=== PATIENT | female | born 1960 ===

== ENCOUNTER → 2016-03-21 | Outpatient (CLI) | payer OTHER ==
[2016-03-21 13:16] LABS: HEMATOCRIT 29.7 % (37-47)
[2016-03-21 13:17] LABS: ALT/SGPT 29 U/L (12-78); BLOOD UREA NITROGEN 19 mg/dl (7-18); BUN/CREATININE RATIO 19.5 (10-20); CALCIUM 8.1 mg/dl (8.5-10.1); CARBON DIOXIDE 24 mmol/L (21-32); CHLORIDE 110 mmol/L (98-107); CREATININE 0.95 mg/dl (0.60-1.20); GLUCOSE 95 mg/dl (70-99); POTASSIUM 3.9 mmol/L (3.5-5.1); SODIUM 143 mmol/L (136-145)
[2016-03-21 13:24] LABS: TOTAL IRON BINDING CAPACITY 348 mcg/dl (250-450)
[2016-03-21 13:28] LABS: ESTIMATED AVERAGE GLUCOSE 137 mg/dl; HA1C FLAG Normal (Normal)
== END | disposition home or self-care (01) ==
LOC: C.LABMFLN 08:12
PROVIDERS: ATTEND Family Medicine
DX: E11.9 Type 2 diabetes mellitus without complications (principal); D64.9 Anemia, unspecified

== ENCOUNTER → 2016-05-13 | Outpatient (CLI) | payer OTHER ==
[2016-05-13 13:50] LABS: HEMATOCRIT 37.1 % (37-47)
[2016-05-13 14:00] LABS: ESTIMATED AVERAGE GLUCOSE 105 mg/dl; HA1C FLAG Normal (Normal)
[2016-05-13 14:04] LABS: ALT/SGPT 26 U/L (12-78); BLOOD UREA NITROGEN 21 mg/dl (7-18); BUN/CREATININE RATIO 25.9 (10-20); CALCIUM 9.1 mg/dl (8.5-10.1); CARBON DIOXIDE 24 mmol/L (21-32); CHLORIDE 112 mmol/L (98-107); CREATININE 0.79 mg/dl (0.60-1.20); GLUCOSE 93 mg/dl (70-99); POTASSIUM 3.5 mmol/L (3.5-5.1); SODIUM 145 mmol/L (136-145)
[2016-05-13 14:07] LABS: ALB/GLOB RATIO 1.1 (0.9-2); ALKALINE PHOSPHATASE 67 U/L (45-117); AST/SGOT 20 U/L (15-37)
[2016-05-13 14:13] LABS: CHOLESTEROL 113 mg/dl (0-200); CHOLESTEROL/HDL RATIO 1.8; HDL CHOLESTEROL 63 mg/dl; TOTAL IRON BINDING CAPACITY 326 mcg/dl (250-450); TRIGLYCERIDES 78 mg/dl (0-150); VERY LOW DENSITY LIPOPROT CALC 16 mg/dl
== END | disposition home or self-care (01) ==
LOC: C.LABMFLN 11:32
PROVIDERS: ATTEND Family Medicine
DX: K91.2 Postsurgical malabsorption, not elsewhere classified (principal); R63.4 Abnormal weight loss; E78.00 Pure hypercholesterolemia, unspecified; I10 Essential (primary) hypertension; E11.9 Type 2 diabetes mellitus without complications; E55.9 Vitamin D deficiency, unspecified; E53.8 Deficiency of other specified B group vitamins

== ENCOUNTER → 2016-12-02 | Outpatient (CLI) | payer OTHER ==
[2016-12-02 14:11] LABS: HEMATOCRIT 33.2 % (37-47)
[2016-12-02 14:17] LABS: ESTIMATED AVERAGE GLUCOSE 154 mg/dl; HA1C FLAG Normal (Normal)
[2016-12-02 14:40] LABS: ALT/SGPT 36 U/L (12-78); BLOOD UREA NITROGEN 24 mg/dl (7-18); BUN/CREATININE RATIO 27.2 (10-20); CALCIUM 8.5 mg/dl (8.5-10.1); CARBON DIOXIDE 27 mmol/L (21-32); CHLORIDE 107 mmol/L (98-107); CREATININE 0.88 mg/dl (0.60-1.20); GLUCOSE 129 mg/dl (70-99); POTASSIUM 4.3 mmol/L (3.5-5.1); SODIUM 141 mmol/L (136-145)
[2016-12-02 14:51] LABS: TOTAL IRON BINDING CAPACITY 420 mcg/dl (250-450)
== END | disposition home or self-care (01) ==
LOC: C.LABMFLN 08:56
PROVIDERS: ATTEND Family Medicine
DX: E78.00 Pure hypercholesterolemia, unspecified (principal); I10 Essential (primary) hypertension; E55.9 Vitamin D deficiency, unspecified; E53.8 Deficiency of other specified B group vitamins; F33.9 Major depressive disorder, recurrent, unspecified; D64.9 Anemia, unspecified; E03.8 Other specified hypothyroidism; D50.9 Iron deficiency anemia, unspecified; E11.9 Type 2 diabetes mellitus without complications; R00.1 Bradycardia, unspecified

== ENCOUNTER → 2017-03-05 | Outpatient (CLI) | payer OTHER ==
[2017-03-05 12:38] LABS: BASO % 0.5 %; BASO ABS # 0.03 K/uL (0-0.2); EOS % 4.9 %; EOS ABS # 0.28 K/uL (0-0.5); HEMATOCRIT 33.4 % (37-47); LYMPH % 18.9 %; LYMPH ABS # 1.09 K/uL (1.2-3.4); MEAN CELL VOLUME 77.9 fL (80-100); MEAN CORPUSCULAR HEMOGLOBIN 23.3 pg (25-34); MEAN CORPUSCULAR HGB CONC 29.9 g/dl (32-36); MEAN PLATELET VOLUME 11.5 fL (7.4-10.4); MONO % 6.1 %; MONO ABS # 0.35 K/uL (0.11-0.59); NEUT % 69.6 %; NEUT ABS # 4.01 K/uL (1.4-6.5); PLATELET COUNT 205 K/uL (130-400); RED CELL DISTRIBUTION WIDTH CV 17.4 % (11.5-14.5); RED CELL DISTRIBUTION WIDTH SD 49.5 fL (36.4-46.3); WHITE BLOOD COUNT 5.76 K/uL (4.8-10.8)
== END | disposition home or self-care (01) ==
LOC: C.LABMFLN 09:33
PROVIDERS: ATTEND Family Medicine
DX: D50.9 Iron deficiency anemia, unspecified (principal); E03.8 Other specified hypothyroidism

== ENCOUNTER → 2017-05-16 | Outpatient (CLI) | payer OTHER ==
[2017-05-16 12:39] LABS: BASO % 0.8 %; BASO ABS # 0.03 K/uL (0-0.2); EOS % 4.5 %; EOS ABS # 0.17 K/uL (0-0.5); HEMOGLOBIN 11.9 g/dL (12.0-16.0); IG# 0.01 K/uL (0.00-0.02); LYMPH % 20.5 %; LYMPH ABS # 0.77 K/uL (1.2-3.4); MEAN CELL VOLUME 83.2 fL (80-100); MEAN CORPUSCULAR HGB CONC 31.3 g/dl (32-36); MONO % 5.6 %; MONO ABS # 0.21 K/uL (0.11-0.59); NEUT % 68.3 %; NEUT ABS # 2.57 K/uL (1.4-6.5); PLATELET COUNT 155 K/uL (130-400); RED CELL DISTRIBUTION WIDTH SD 63.5 fL (36.4-46.3); RETIC COUNT % 1.1 % (0.5-2.0); WHITE BLOOD COUNT 3.76 K/uL (4.8-10.8)
== END | disposition home or self-care (01) ==
LOC: C.LABMFLN 09:40
PROVIDERS: ATTEND Family Medicine
DX: E03.8 Other specified hypothyroidism (principal)